=== PATIENT | male | born 1980 | race Caucasian/White ===

== ENCOUNTER 2019-02-07 09:45 | Emergency (ER) | payer OTHER ==
[~2019-02-07] VITALS: Ht 182.9 cm; Wt 107.0 kg
[~2019-02-07 09:45] MED LIST: CATAFLAM50 MG PO
== END 2019-02-07 13:41 | disposition home or self-care (01) ==
LOC: ER 09:45
DX: M54.5 Low back pain (principal); M25.552 Pain in left hip; M25.551 Pain in right hip